=== PATIENT | female | born 1980 | race Caucasian/White ===

== ENCOUNTER 2018-04-08 08:24 | Inpatient (IN) | payer OTHER ==
[~2018-04-08] VITALS: Ht 160 cm; Wt 3.6 kg
== END 2018-04-14 16:54 | disposition home or self-care (01) | DRG 785 ==
LOC: OB/GYN 08:24 → LDR 08:24 → OB/GYN 21:27
PROVIDERS: Obstetrics & Gynecology
PROC: 0UL70ZZ Occlusion of Bilateral Fallopian Tubes, Open Approach (ICD-10-PCS; 2018-04-08)
PROC: 4A1HXCZ Monitoring of Products of Conception, Cardiac Rate, External Approach (ICD-10-PCS; 2018-04-08)
PROC: 10D00Z1 Extraction of Products of Conception, Low, Open Approach (ICD-10-PCS; principal; 2018-04-08 16:15)
DX: O34.211 Maternal care for low transverse scar from previous cesarean delivery (principal); O75.82 Onset (spontaneous) of labor after 37 completed weeks of gestation but before 39 completed weeks gestation, with delivery by (planned) cesarean section; Z3A.38 38 weeks gestation of pregnancy; Z37.0 Single live birth; Z30.2 Encounter for sterilization; Z22.330 Carrier of Group B streptococcus